=== PATIENT | female | born 1975 | race African-American/Black ===

== ENCOUNTER → 2016-08-11 | Outpatient (CLI) | payer BC ==
--- NOTE | 2016-08-12 09:39 | MM ---
Reason for exam: screening (asymptomatic). Last mammogram was performed 6 years and 6 months ago. Physical Findings: A clinical breast exam by your physician is recommended on an annual basis and results should be correlated with mammographic findings. MG Screening Mammo w CAD Bilateral CC and MLO view(s) were taken. Prior study comparison: February 14, 2010, bilateral diagnostic digital mammog. There are scattered fibroglandular densities. Finding: There are typically benign round calcifications in both breasts. There is no discrete abnormality. ASSESSMENT: Benign, BI-RAD 2 RECOMMENDATION: Routine screening mammogram of both breasts in 1 year.
== END | disposition home or self-care (01) ==
LOC: RADMAMWWP 08:26
PROVIDERS: ATTEND Obstetrics & Gynecology
DX: Z12.31 Encounter for screening mammogram for malignant neoplasm of breast (principal)

== ENCOUNTER → 2018-03-02 | Outpatient (CLI) | payer BC ==
--- NOTE | 2018-03-02 13:04 | MM ---
Reason for exam: clinical finding. Last mammogram was performed 1 year and 7 months ago. Physical Findings: Nurse Summary: 1cm nodule in the right breast at 9 o'clock (nurse kp). MG 3D Diag Mammo W/Cad JOSEY Bilateral CC, MLO, and XCCL view(s) were taken. LM, CC with magnification, and LM with magnification view(s) were taken of the right breast. Prior study comparison: August 11, 2016, bilateral MG screening mammo w CAD. There are scattered fibroglandular densities. There is a 5mm group of upper inner quadrant posterior depth linear heterogeneous calcifications. These results were verbally communicated with the patient and result sheet given to the patient on 03/02/18. ASSESSMENT: Suspicious, BI-RAD 4 RECOMMENDATION: Stereotactic core biopsy of the right breast. Called Dr. Sims with mammographic findings and has scheduled an appointment for the patient for 04/01/18 at 10:[address] Ramon. Biopsy scheduled for 04/15/18 at 8:00. PRELIMINARY REPORT CALLED AND FAXED TO DR. RAMON ON 03/02/18.
--- NOTE | 2018-03-02 13:06 | USB ---
Reason for exam: clinical finding. US Breast Limited RT Right limited breast ultrasound including focal area of concern, retroareolar and axilla demonstrates a 0.8 x 0.7 x 0.6cm oval, node at 10 o'clock and a 1.7 x 1.3 x 0.9cm axilla node. Benign appearing lymph nodes. These results were verbally communicated with the patient and result sheet given to the patient on 03/02/18. ASSESSMENT: Suspicious, BI-RAD 4 RECOMMENDATION: Stereotactic core biopsy of the right breast. Called Dr. Sims with mammographic findings and has scheduled an appointment for the patient for 04/01/18 at 10:[address] Ramon. Biopsy scheduled for 04/15/18 at 8:00. PRELIMINARY REPORT CALLED AND FAXED TO DR. RAMON ON 03/02/18.
== END | disposition home or self-care (01) ==
LOC: RADMAMWWP 09:39
PROVIDERS: ATTEND Obstetrics & Gynecology
DX: N63.31 Unspecified lump in axillary tail of the right breast (principal)
CPT/HCPCS: 77062; 77066

== ENCOUNTER → 2018-04-01 | Outpatient (CLI) | payer BC ==
[2018-04-01 10:39] VITALS: BP 137/86; PULSE 75; RESP 18; TEMP 98; BMI 39.4
--- NOTE | 2018-04-01 11:28 | P.GSHP ---
History of Present Illness H&P Date: 04/01/18 Chief Complaint: Mammographic abnormality right breast Avis is a 42-year-old -Portuguese female who noticed some increased nodularity in her right breast approximately 4 months ago. When she came in for a screening mammogram the nurse noted some nodularity in the right breast at the 9 o'clock position. The patient herself had noted some nodularity in the 12 o'clock position of the right breast. The patient has had no trauma, nipple discharge, or infection in either breast. Her mammogram was performed 3017. This revealed scattered fibroglandular densities. There was a 5 mm group of upper inner quadrant posterior depth linear heterogeneous calcifications. No lesions of concern were noted in the left breast. The right breast and underwent an ultrasound which revealed a 0.8 x 0.6 cm oval noted at 10:00 and 1.7 x 1.3 cm axillary node. There were benign-appearing lymph nodes. The recommendation following ultrasound was first detected core biopsy of the right breast. Family History: no cancer Hormonal History: menarche: 10 pregnacy: 3, children 3, first at 17, breast fed: all menopause: Hysterectomy at the age of 29, still has both ovaries, fibroid tumors control pills: 1 year hormones: none Past Surgical History: 1. tumor off right ovary 2. gallbladder 3. Bowel surgery as an infant uncertain as to the type Past Medical History: 1. HTN 2. asthma Social History: smoke: stopped 1 month ago, used to be apack/week alcohol: occasional drugs: Marijuana occasionally - Constitutional Comment: BMI 39.5 Constitutional: Denies chills, Denies fever - EENT Eyes: bilateral blurred vision (wears glasses), denies pain Ears: deny: decreased hearing, tinnitus Ears, nose, mouth and throat: Reports headache, Denies sore throat - Breasts Breasts: bilateral: as per HPI - Cardiovascular Cardiovascular: Reports high blood pressure, Denies chest pain, Denies shortness of breath - Respiratory Comment: asthma - Gastrointestinal Gastrointestinal: Reports diarrhea, Denies abdominal pain, Denies nausea, Denies vomiting - Genitourinary (Female) Genitourinary: Denies dysuria, Denies hematuria - Menstruation Menstruation: Reports post hysterectomy - Musculoskeletal Musculoskeletal: Reports myalgias - Integumentary Integumentary: Denies pruritus, Denies rash - Neurological Neurological: Reports weakness, Denies numbness - Psychiatric Psychiatric: Denies anxiety, Denies depression - Endocrine Comment: lost 30 pounds Endocrine: Denies fatigue, Denies weight change - Hematologic/Lymphatic Comment: none - Allergic/Immunologic Allergic/Immunologic: Reports seasonal allergies Past Medical History Past Medical History: Asthma, Hypertension History of Any Multi-Drug Resistant Organisms: None Reported Past Surgical History: Hysterectomy Additional Past Surgical History / Comment(s): BENIGN TUMOR REMOVED FROM OVARY Past Anesthesia/Blood Transfusion Reactions: No Reported Reaction Past Psychological History: No Psychological Hx Reported Smoking Status: Former smoker Past Alcohol Use History: Occasional Additional Past Alcohol Use History / Comment(s): STATES QUIT SMOKING ONE WEEK AGO, STARTED 2014, SMOKED LESS THAN 1/2 PPD Past Drug Use History: None Reported - Past Family History Brother(s) Family Medical History: Deep Vein Thrombosis (DVT) Medications and Allergies Home Medications Medication Instructions Recorded Confirmed Type Hydrochlorothiazide [Hydrodiuril] 25 mg PO DAILY 03/09/18 04/01/18 History Multivit with Calcium,Iron,Min 1 each PO DAILY 03/09/18 04/01/18 History [Women's Multivitamin] Metoprolol Succinate (ER) [Toprol 25 mg PO DAILY 04/01/18 04/01/18 History Xl] Allergies Allergy/AdvReac Type Severity Reaction Status Date / Time No Known Allergies Allergy Verified 03/09/18 14:35 Surgical - Exam Vital Signs Temp Pulse Resp BP Pulse Ox 98.0 F 75 18 137/86 98 04/01/18 10:29 04/01/18 10:29 04/01/18 10:29 04/01/18 10:29 04/01/18 10:29 bmi 39.5 - General obese - Eyes normal ocular movement - ENT no hearing loss, no congestion - Neck no masses, trachea midline - Respiratory normal expansion, normal respiratory effort - Cardiovascular Rhythm: regular Heart Sounds: normal: S1, S2 - Abdomen Abdomen: soft, non tender, no guarding, no rigid, no rebound - Integumentary good turger - Neurologic no disoriented, no combative - Musculoskeletal normal gait - Psychiatric oriented to time, oriented to person, oriented to place, speech is normal, memory intact breast exam: Right breast: Multi-positional exam fibrocystic changes, particular tension to the 9:00 area of reveals only fibrocystic changes no definite mass Right axilla: No adenopathy of concern Left breast: Multiple positional exam no dominant masses or nodules of concern Left axilla: No adenopathy of concern Results Radiograph reports of the breast reviewed Assessment and Plan Assessment: Impression/plan: 1. Abnormal mammogram right breast revealing 5 mm group of upper inner quadrant posterior depth linear heterogeneous calcifications 2. Fibrocystic breast changes 3. Hypertension 4. Myalgias Plan: 1. Severe tactic core biopsy of the right breast 2. Medical management of medical conditions Cc: Dr. Sims The procedure is discussed in detail with the patient and her family they understand the risks and benefits and wished to proceed.
== END ==
LOC: WWCWWP 10:19
PROVIDERS: ATTEND Surgery
DX: Z53.9 Procedure and treatment not carried out, unspecified reason (principal)

== ENCOUNTER → 2018-04-15 | Day surgery (SDC) | payer BC ==
[2018-04-15 07:17] VITALS: BP 164/101; PULSE 76; RESP 16; TEMP 99.3; BMI 37.8
--- NOTE | 2018-04-15 13:57 | MM ---
EXAMINATION TYPE: MG discontinued stereo core RT DATE OF EXAM: 04/15/2018 COMPARISON: Prior mammogram March 02, 2018 and older studies. CLINICAL HISTORY: Suspicious group of calcifications right breast, abnormal mammogram TECHNIQUE: Stereotactic guided core biopsy of right breast. FINDINGS: The procedure of stereotactic guided core biopsy was explained to the patient. Benefits, a lternatives, and risks were discussed. An informed consent was then obtained. Procedure was attempted via CC and lateral compression. Both techniques failed to safely localize rukhsana up of calcifications separate from adjacent vessels. Patient was also hypertensive at time of attempt ed procedure. For above reasons procedure was canceled. It was discussed with surgeon and patient to perform needle localization with wire placement and surg ical excision. Patient was agreeable and left department in stable condition IMPRESSION: As above.
== END | disposition home or self-care (01) ==
LOC: RADMAMWWP 06:56
PROVIDERS: ATTEND Surgery
DX: R92.1 Mammographic calcification found on diagnostic imaging of breast (principal); Z53.9 Procedure and treatment not carried out, unspecified reason

== ENCOUNTER → 2018-04-22 | Outpatient (CLI) | payer BC ==
[2018-04-22 10:34] VITALS: BP 164/88; PULSE 80; RESP 20; TEMP 98.4; BMI 39.4
--- NOTE | 2018-04-22 11:04 | P.GSHP ---
History of Present Illness H&P Date: 04/22/18 Chief Complaint: Mammographic abnormality right breast The patient is a 42-year-old -[place] female who had noticed some increased nodularity in her right breast several months ago. She then had a screening mammogram done in the nurse noticed some nodularity in the right breast at the 9 o'clock position. The patient herself had noted the nodularity at the 12 o'clock position. The patient had no trauma nipple discharge or infection either breast. Mammogram was performed in February and this revealed scattered fibroglandular densities. There was also noted to be a 5 mm group of upper inner quadrant posterior duct linear heterogeneous calcifications. No lesions of concern were noted in the left breast. The right breast and underwent an ultrasound which revealed a 0.8 cm lesion at 10:00 and 1.7 x 1.3 cm axillary node which appeared to be benign. Was recommended she undergo a stereotactic core biopsy of the right breast. She presented for stereotactic core biopsy on [id number]. The lesion of concern was noted to be in proximity to some blood vessels and it was felt that it was safest to do the biopsy in the operating room with needle localization. Family history: Negative for cancer Hormonal history: Menarche: 10 Pregnancies: 3, children 3, Versed 17, breast fed: All Menopause: Hysterectomy at the age of 29, still has both ovaries, done for fibroid tumors control pills: 1 year Hormones: None Past surgical history: 1. Tumor of the right ovary 2. Cholecystectomy 3. Bowel surgery as an uncertain as to the type Past medical history: Hypertension Asthma Social history: Smoke: Stopped 1 month ago used to be 1 pack a week Alcohol: Occasionally Drugs: Marijuana occasionally - Review of Systems Comment: BMI 39.5 - Constitutional Constitutional: Denies chills, Denies fever - EENT Comment: wears glasses Eyes: bilateral blurred vision, denies pain Ears, nose, mouth and throat: Reports headache, Denies sore throat - Breasts Breasts: bilateral: as per HPI - Cardiovascular Cardiovascular: Reports high blood pressure - Respiratory Comment: asthma - Gastrointestinal Gastrointestinal: Denies abdominal pain, Denies diarrhea, Denies nausea, Denies vomiting - Genitourinary (Female) Genitourinary: Denies dysuria, Denies hematuria - Menstruation Menstruation: Reports post hysterectomy - Musculoskeletal Musculoskeletal: Reports myalgias - Integumentary Integumentary: Denies pruritus, Denies rash - Neurological Neurological: Reports weakness - Psychiatric Psychiatric: Denies anxiety, Denies depression - Endocrine Endocrine: Reports weight change - Hematologic/Lymphatic Comment: none - Allergic/Immunologic Allergic/Immunologic: Reports seasonal allergies Past Medical History Past Medical History: Asthma, Hypertension History of Any Multi-Drug Resistant Organisms: None Reported Past Surgical History: Hysterectomy Additional Past Surgical History / Comment(s): BENIGN TUMOR REMOVED FROM OVARY Past Anesthesia/Blood Transfusion Reactions: No Reported Reaction Past Psychological History: No Psychological Hx Reported Smoking Status: Never smoker Past Alcohol Use History: Occasional Additional Past Alcohol Use History / Comment(s): STATES QUIT SMOKING ONE WEEK AGO, STARTED 2014, SMOKED LESS THAN 1/2 PPD Past Drug Use History: None Reported - Past Family History Brother(s) Family Medical History: Deep Vein Thrombosis (DVT) Medications and Allergies Home Medications Medication Instructions Recorded Confirmed Type Hydrochlorothiazide [Hydrodiuril] 25 mg PO DAILY 03/09/18 04/22/18 History Multivit with Calcium,Iron,Min 1 each PO DAILY 03/09/18 04/22/18 History [Women's Multivitamin] Metoprolol Succinate (ER) [Toprol 25 mg PO DAILY 04/01/18 04/22/18 History Xl] Allergies Allergy/AdvReac Type Severity Reaction Status Date / Time No Known Allergies Allergy Verified 04/15/18 07:06 Surgical - Exam Vital Signs Temp Pulse Resp BP 98.4 F 80 20 164/88 04/22/18 10:26 04/22/18 10:26 04/22/18 10:26 04/22/18 10:26 BMI 39.5 - General obese - Eyes normal ocular movement - ENT no hearing loss, no congestion - Neck no masses, trachea midline - Respiratory normal respiratory effort, clear to auscultation - Cardiovascular Rhythm: regular Heart Sounds: normal: S1, S2 - Abdomen Abdomen: soft, non tender, no guarding, no rigid, no rebound - Integumentary normal turger, no icterus Breast examination: Right breast: Multi-positional exam fibrocystic changes, no dominant masses or nodules of concern Right axilla: No adenopathy of concern Left breast: Multi-positional exam no dominant masses or nodules of concern Left axilla: No adenopathy of concern - Musculoskeletal normal gait, normal posture - Psychiatric oriented to time, oriented to person, oriented to place, speech is normal, memory intact Results Radiographs reviewed with radiologist, area of concern in close proximity to large blood vessels and not felt to be a good candidate for stereotactic core biopsy Assessment and Plan Assessment: Impression: 1. Abnormal right breast mammogram revealing 5 mm groove upper inner quadrant posterior depth linear heterogeneous calcifications, not conducive to stereotactic core biopsy 2. Fibrocystic breast changes 3. Hypertension 4. Myalgia Plan: 1. Needle localization excisional biopsy of area of concern in the right breast 2. Medical management for hypertension 3. Medical clearance Plan: Risk and benefits of needle localization and excisional biopsy were discussed with the patient and her mother. She understands and wishes to proceed. Cc: Dr. Sims
== END ==
LOC: WWCWWP 09:46
PROVIDERS: ATTEND Surgery
DX: N63.10 Unspecified lump in the right breast, unspecified quadrant (principal); N60.11 Diffuse cystic mastopathy of right breast; I10 Essential (primary) hypertension; M79.10 Myalgia, unspecified site

== ENCOUNTER 2018-05-18 06:59 | Day surgery (SDC) | payer BC ==
[2018-05-17 09:05] VITALS: BMI 41.0
[~2018-05-18 06:59] MED LIST: DEXAMETHASONE SOD PHOSPHATE 10 MG/ML 1 ML VIAL IV ONE; HEPARIN SODIUM,PORCINE 5,000 UNIT/ML 1 ML VIAL SQ ONE; LACTATED RINGERS 1,000 ML IV SCH; LIDOCAINE 1% 20 ML VIAL (10MG/ML) FOR IV START INTRADERMA PRN; MIDAZOLAM (PF) 2 MG/2 ML VIAL IV PRN; ONDANSETRON 4 MG/2 ML VIAL IVP ONE; Pre Op ABX Message 1 EACH MISC MISCELLANE ONE; SCOPOLAMINE 1.5MG/72HR PATCH TRANSDERM ONE
[2018-05-18] MEDS ORDERED: ALPRAZolam 0.5 MG TAB OG-TUBE ONE (07:41)
[2018-05-18] MEDS ORDERED: LIDOCAINE 1% INJ 10MG/ML (20 ML MDV) SQ ONE ×3 (08:30→09:58)
[2018-05-18] MEDS ORDERED: SODIUM BICARB 4% 5 ML VIAL (0.48 MEQ/ML) MISCELLANE ONE (08:30)
[2018-05-18] MEDS ORDERED: LIDOCAINE 1% INJ 10MG/ML (20 ML MDV) ONE (09:36)
[2018-05-18] MEDS ORDERED: ePHEDrine SULFATE/0.9% NACL/PF 50 MG/5 ML SYRINGE IV ONE (09:36)
[2018-05-18] MEDS ORDERED: fentaNYL (PF) 50 MCG/ML 2 ML AMP ONE (09:36)
[2018-05-18] MEDS ORDERED: SUCCINYLCHOLINE CHLORIDE 100 MG/5 ML SYR IV ONE (09:36)
[2018-05-18] MEDS ORDERED: PROPOFOL 10 MG/ML 20 ML VIAL IV ONE (09:36)
[2018-05-18] MEDS ORDERED: MIDAZOLAM 2 MG/2 ML VIAL ONE (09:36)
[2018-05-18] MEDS ORDERED: HEPARIN SODIUM,PORCINE 5,000 UNIT/ML 1 ML VIAL SQ ONE (09:50)
--- NOTE | 2018-05-18 10:43 | P.OP ---
Date of Procedure: 05/18/18 Preoperative Diagnosis: Microcalcifications of concern right breast Postoperative Diagnosis: Same Procedure(s) Performed: Needle localization excisional biopsy area of concern in the right breast Anesthesia: SAMMIEA Surgeon: Aneta Ramon Estimated Blood Loss (ml): 5 IV fluids (ml): 700 Pathology: other (Breast tissue) Condition: stable Disposition: PACU Indications for Procedure: Mammographic abnormality right breast, failed attempt at stereo biopsy Operative Findings: Dense breast tissue Description of Procedure: The patient was taken to the operating room and following induction of anesthesia the right breast was prepped and draped in a sterile fashion. The localization of an area of concern in the right breast had been performed preoperatively. Attempted preoperative stereotactic biopsy was unsuccessful secondary to hypertension as well as large vessels in the area of the abnormality. An incision was made in the right breast and carried down to the shaft of the needle. The needle was elevated and grasped using an Allis clamp. Surrounding tissue was excised. Hemostasis was attained using electrocautery device. Radiograph of the specimen revealed the area of concern had been removed. After we were assured that hemostasis was attained the wound was well irrigated. Titanium clips were placed. The deep tissues were closed using 3-0 Vicryl suture. The skin was closed using 4-0 Monocryl. Steri-Strips were applied. All instrument and sponge counts were correct at the end of the case. The patient tolerated the procedure in stable condition. The specimen was sent to pathology. The patient will follow-up Dr. Damon next week.
--- NOTE | 2018-05-18 10:45 | P.DS ---
Providers Attending physician: Aneta Ramon Primary care physician: Stated None Plan - Discharge Summary New Discharge Prescriptions: No Action Hydrochlorothiazide [Hydrodiuril] 25 mg PO DAILY Multivit with Calcium,Iron,Min [Women's Multivitamin] 1 each PO DAILY Metoprolol Succinate (ER) [Toprol Xl] 25 mg PO DAILY Discharge Medication List Hydrochlorothiazide [Hydrodiuril] 25 mg PO DAILY 03/09/18 [History] Multivit with Calcium,Iron,Min [Women's Multivitamin] 1 each PO DAILY 03/09/18 [ History] Metoprolol Succinate (ER) [Toprol Xl] 25 mg PO DAILY 04/01/18 [History] Follow up Appointment(s)/Referral(s): Aneta Ramon MD [STAFF PHYSICIAN] - 1 Week Activity/Diet/Wound Care/Special Instructions: Wear bra until seen by Dr. Damon Patient may shower after [address] today Do not drive if taking opioid pain medication Discharge Disposition: HOME SELF-CARE
[2018-05-18 11:05] VITALS: TEMP 97.1
--- NOTE | 2018-05-18 11:12 | MM ---
EXAM: Needle localization with wire placement. CLINICAL HISTORY: New group of suspicious calcifications in right breast. Unsuccessful stereotactic g uided core biopsy. TECHNIQUE: Needle localization with wire placement and surgical excision of [facility] COMPARISON: Prior mammogram March 02, 2018 and older studies. FINDINGS: The procedure of needle localization with wire placement and than surgical excision was exp lained to the patient. Benefits, alternatives, and risks were discussed. An informed consent was th en obtained. The safest pathway for procedure was chosen. Safest pathway was cranial approach. The overlying skin was prepped and draped in usual sterile fashion. Lidocaine buffered with bicarbonate was used as ane sthetic into the skin and subcutaneous tissue up to the level of area of concern. A 9 cm needle was used. It was placed via a cranial approach under mammographic guidance. Subsequent 90 degrees mammo gram show the needle to be in satisfactory position relative to the targeted area. At this point, wi re was placed and the needle was withdrawn. The wire was fixed to patient's skin. Images were marke d for surgeon. The patient tolerated the procedure well without any immediate complication. The patient was kept in the radiology department for short stay after the procedure and then taken to surgery for surgical e xcision. Targeted calcifications and wire are identified in specimen mammogram. The patient was k ept in hospital for short stay after the procedure and then discharged home in stable condition. IMPRESSION: Successful, uncomplicated needle localization with wire placement and surgical excision o f suspicious group of calcifications in the right breast, full pathology results to follow. Low to intermediate index of suspicion noted at time of procedure.
[2018-05-18] MEDS: HYDROmorphone 0.5 MG/0.5 ML SYRINGE IVP PRN ×2 (11:30→11:43)
[2018-05-18] MEDS ORDERED: LACTATED RINGERS 1,000 ML IV ONE (12:01)
[2018-05-18 12:03] VITALS: RESP 16
[2018-05-18 12:19] VITALS: BP 146/88; PULSE 92
== END 2018-05-18 13:05 | disposition home or self-care (01) ==
LOC: OR 06:59
PROVIDERS: ATTEND Surgery
DX: N60.11 Diffuse cystic mastopathy of right breast (principal); R92.0 Mammographic microcalcification found on diagnostic imaging of breast; I10 Essential (primary) hypertension; J45.909 Unspecified asthma, uncomplicated; Z79.899 Other long term (current) drug therapy; Z90.710 Acquired absence of both cervix and uterus; Z87.891 Personal history of nicotine dependence
CPT/HCPCS: 19125; 88307; 76098; 19281; J2250; J1644; J1100; J2405; J2001; J3010; J0330; J2704; J1170

== ENCOUNTER → 2018-05-27 | Outpatient (CLI) | payer BC ==
[2018-05-27 15:33] VITALS: BP 176/91; PULSE 75; RESP 18; TEMP 97.6
--- NOTE | 2018-05-27 15:37 | P.PN ---
Progress Note - Text Progress Note Date: 05/27/18 Avis is a 42-year-old black female who presents status post right breast needle localization and excisional biopsy. She has no complaints at this time. Pathology revealed fibrocystic disease. Only scant microscopic mineralization 's were seen. Her radiographs were reviewed with the radiologist as well as the specimen radiograph and it is felt that the area of concern was removed. I' ve discussed with her that we will repeat a mammogram in 6 months and if necessary would repeat a biopsy but at this time it appears that the area was adequately sampled. The patient's mother has expressed some concerns about keloid formation, however there is nothing to show that that is happening at this time. Incision: Clean and dry Evidence of any infection Impression: 1. Fibrocystic breast changes 2. Hypertension Plan: 1. Repeat right breast mammogram and physician exam in 6 months 2. If patient is concerned about keloid formation she will call 3. Recommend follow-up with primary care doctor secondary to hypertension Cc: Dr. Sims
== END | disposition home or self-care (01) ==
LOC: WWCWWP 14:49
PROVIDERS: ATTEND Surgery
DX: Z53.9 Procedure and treatment not carried out, unspecified reason (principal)

== ENCOUNTER → 2018-06-03 | Outpatient (CLI) | payer BC ==
[2018-06-03 09:36] VITALS: BP 179/122; PULSE 91; RESP 18; TEMP 98.4; BMI 39.4
--- NOTE | 2018-06-03 09:55 | P.PN ---
Progress Note - Text Progress Note Date: 06/03/18 Patient is a 42-year-old black female who is status post excisional biopsy of a right breast lesion on 05-18-18. She was seen on and was doing well. The patient then states that she was out shoveling snow and noticed some discomfort in her right chest wall. She returns for repeat evaluation of the area. She has had no fever or chills. There is no swelling of the area. Physical exam: Blood pressure 179/122 Pulse 91 Temperature 98.4 Respirations 18 Lungs: Clear Heart: Regular rate and rhythm Incision: Clean and dry Evidence of any infection mild ecchymosis at the inches excision site Impression: 1. Incision site is healing well with no evidence of infection 2. Hypertension Plan: 1. Repeat right breast mammogram in 6 months with appointment here at that time 2. Follow-up with primary care physician related to hypertension Cc: Dr. Sims
== END | disposition home or self-care (01) ==
LOC: WWCWWP 09:11
PROVIDERS: ATTEND Surgery
DX: Z53.9 Procedure and treatment not carried out, unspecified reason (principal)

== ENCOUNTER → 2018-10-12 | Outpatient (CLI) | payer BC ==
--- NOTE | 2018-10-12 16:00 | XR ---
EXAMINATION TYPE: XR cervical spine comp DATE OF EXAM: 10/12/2018 TECHNIQUE: Frontal, lateral, oblique, and open mouth view of the cervical spine are obtained. HISTORY: M54.2 Cervicalgia COMPARISON: None FINDINGS: The cervical spine is visualized in its entirety from C1 thru the inferior C7 level, it is straightened in alignment without evidence of acute fracture or dislocation. Suboptimal evaluation o f C7-T1 disc space without dedicated swimmer's view. The pre-vertebral soft tissue appears within nor mal limits. The C1-C2 articulation is within normal limits on the open mouth view. Vertebral body he ights are maintained. Mild disc space narrowing and anterior spurring C5-C6 level. The oblique images are within normal limits. IMPRESSION: As above.
== END | disposition home or self-care (01) ==
LOC: RADXRMAIN 15:04
PROVIDERS: ATTEND Physician Assistant
DX: M99.71 Connective tissue and disc stenosis of intervertebral foramina of cervical region (principal)
CPT/HCPCS: 72050

== ENCOUNTER → 2018-11-22 | Outpatient (CLI) | payer BC ==
--- NOTE | 2018-11-23 09:09 | MM ---
Reason for exam: follow-up at short interval from prior study. Last mammogram was performed 9 months ago. History: Benign MG pre op needle loc RT of the right breast, May 18, 2018. MG discontinued stereo core RT of the right breast, April 15, 2018. Physical Findings: Nurse did not find any significant physical abnormalities on exam. MG 3D Diag Mammo W/Cad RT CC and MLO view(s) were taken of the right breast. Prior study comparison: March 02, 2018, bilateral MG 3d diag mammo w/cad JOSEY. August 11, 2016, bilateral MG screening mammo w CAD. The breast tissue is heterogeneously dense. This may lower the sensitivity of mammography. Post operative lumpectomy change with distortion and clips noted. These results were verbally communicated with the patient and result sheet given to the patient on 11/22/18. ASSESSMENT: Benign, BI-RAD 2 RECOMMENDATION: Follow-up diagnostic mammogram of both breasts in 6 months.
== END | disposition home or self-care (01) ==
LOC: RADMAMWWP 13:04
PROVIDERS: ATTEND Surgery
DX: R92.8 Other abnormal and inconclusive findings on diagnostic imaging of breast (principal)
CPT/HCPCS: 77061; 77065

== ENCOUNTER → 2018-11-25 | Outpatient (CLI) | payer BC ==
--- NOTE | 2018-11-25 16:12 | P.PN ---
Subjective Progress Note Date: 11/25/18 Principal diagnosis: fibrocystic breast disease Avis is a 42-year-old -[place] female who noticed some increased nodularity in her right breast approximately 4 months ago. When she came in for a screening mammogram the nurse noted some nodularity in the right breast at the 9 o'clock position. The patient herself had noted some nodularity in the 12 o'clock position of the right breast. The patient has had no trauma, nipple discharge, or infection in either breast. Her mammogram was performed [id number]. This revealed scattered fibroglandular densities. There was a 5 mm group of upper inner quadrant posterior depth linear heterogeneous calcifications. No lesions of concern were noted in the left breast. The right breast and underwent an ultrasound which revealed a 0.8 x 0.6 cm oval noted at 10:00 and 1.7 x 1.3 cm axillary node. There were benign-appearing lymph nodes. The recommendation following ultrasound was first detected core biopsy of the right breast. Attempted history of biopsy was unsuccessful secondary to vessels in the area. Was therefore recommended she undergo a needle local excisional biopsy in the operating room. This was performed on . Pathology revealed fibrocystic disease. The patient presents now for evaluation. [place] [id number]. The findings preliminarily were benign BIRADS 2, with repeat bilateral mammogram and 6 months time. The patient does not have any masses or lumps in her breasts for which she is concerned. Family History: no cancer Hormonal History: menarche: 10 pregnacy: 3, children 3, first at 17, breast fed: all menopause: Hysterectomy at the age of 29, still has both ovaries, fibroid tumors control pills: 1 year hormones: none Past Surgical History: 1. tumor off right ovary 2. gallbladder 3. Bowel surgery as an uncertain as to the type Past Medical History: 1. HTN 2. asthma Social History: smoke: stopped 7 months ago, used to be a pack/week alcohol: occasional drugs: Marijuana occasionally - Constitutional Comment: BMI 39.5 Constitutional: Denies chills, Denies fever - EENT Eyes: bilateral blurred vision (wears glasses), denies pain Ears: deny: decreased hearing, tinnitus Ears, nose, mouth and throat: Reports headache, Denies sore throat - Breasts Breasts: bilateral: as per HPI - Cardiovascular Cardiovascular: Reports high blood pressure, Denies chest pain, Denies shortness of breath - Respiratory Comment: asthma - Gastrointestinal Gastrointestinal: Reports diarrhea, Denies abdominal pain, Denies nausea, Denies vomiting - Genitourinary (Female) Genitourinary: Denies dysuria, Denies hematuria - Menstruation Menstruation: Reports post hysterectomy - Musculoskeletal Musculoskeletal: Reports myalgias - Integumentary Integumentary: Denies pruritus, Denies rash - Neurological Neurological: Reports weakness, Denies numbness - Psychiatric Psychiatric: Denies anxiety, Denies depression - Endocrine Comment: lost 30 pounds Endocrine: Denies fatigue, Denies weight change - Hematologic/Lymphatic Comment: none - Allergic/Immunologic Allergic/Immunologic: Reports seasonal allergies Past Medical History Past Medical History: Asthma, Hypertension History of Any Multi-Drug Resistant Organisms: None Reported Past Surgical History: Hysterectomy Additional Past Surgical History / Comment(s): BENIGN TUMOR REMOVED FROM OVARY Past Anesthesia/Blood Transfusion Reactions: No Reported Reaction Past Psychological History: No Psychological Hx Reported Smoking Status: Former smoker Past Alcohol Use History: Occasional Additional Past Alcohol Use History / Comment(s): STATES QUIT SMOKING ONE WEEK AGO, STARTED 2014, SMOKED LESS THAN 1/2 PPD Past Drug Use History: None Reported Objective - Exam BMI 41.1 - Constitutional General appearance: Present: obese - EENT Eyes: Present: EOMI ENT: Present: hearing grossly normal - Neck Neck: Present: normal ROM - Respiratory Respiratory: bilateral: CTA - Cardiovascular Rhythm: regular Heart sounds: normal: S1, S2 - Gastrointestinal General gastrointestinal: Present: soft - Integumentary Integumentary: Present: normal turgor - Musculoskeletal Musculoskeletal: Present: gait normal - Psychiatric Psychiatric: Present: A&O x's 3, appropriate affect, intact judgment & insight - Additional findings Additional findings: breast exam: Right breast: Multi-positional exam no dominant masses or nodules of concern, well-healed scar from prior surgery Right axilla: No adenopathy of concern Left breast: Multi-positional exam no dominant masses or nodules of concern Left axilla: No adenopathy of concern Assessment and Plan Assessment: Impression: 1. HTN 2. asthma 3. obesity 4. fibrocystic breast disease Plan: 1. bilateral mammogram in 6 months with appointment 2. medical managment of medical conditions CC: Dr. Maurice
== END ==
DX: Z53.9 Procedure and treatment not carried out, unspecified reason (principal)

== ENCOUNTER → 2019-06-03 | Outpatient (CLI) | payer BC ==
--- NOTE | 2019-06-03 11:50 | MM ---
Reason for exam: additional evaluation requested from prior study. Last mammogram was performed 6 months ago. History: Benign MG pre op needle loc RT of the right breast, May 18, 2018. MG discontinued stereo core RT of the right breast, April 15, 2018. Physical Findings: Nurse did not find any significant physical abnormalities on exam. MG 3D Diag Mammo W/Cad JOSEY Bilateral CC and MLO view(s) were taken. Prior study comparison: November 22, 2018, right breast MG 3d diag mammo w/cad RT. March 02, 2018, bilateral MG 3d diag mammo w/cad JOSEY. There are scattered fibroglandular densities. Benign appearing bilateral calcifications. No suspicious abnormality. Post surigical change on the right No significant new findings when compared with previous films. These results were verbally communicated with the patient and result sheet given to the patient on 06/03/19. ASSESSMENT: Benign, BI-RAD 2 RECOMMENDATION: Routine screening mammogram of both breasts in 1 year.
== END | disposition home or self-care (01) ==
LOC: RADMAMWWP 10:55
PROVIDERS: ATTEND Surgery
DX: R92.8 Other abnormal and inconclusive findings on diagnostic imaging of breast (principal)
CPT/HCPCS: 77062; 77066

== ENCOUNTER 2019-06-27 16:35 | Emergency (ER) | payer BC ==
[2019-06-27 16:40] VITALS: BP 180/95; PULSE 86; RESP 20; TEMP 98.2
[2019-06-27] MEDS ORDERED: KETOROLAC 30 MG/ML 1 ML VIAL IM STA (16:45)
--- NOTE | 2019-06-27 17:07 | XR ---
EXAMINATION TYPE: XR knee complete LT DATE OF EXAM: 06/27/2019 COMPARISON: NONE HISTORY: 44 year-old female left knee pain and swelling TECHNIQUE: 3 views FINDINGS: Small knee joint effusion. Extensor mechanism is intact. No acute fracture, subluxation, or dislocation. IMPRESSION: Nonspecific small knee joint effusion. No acute osseous abnormality seen.
--- NOTE | 2019-06-27 18:08 | US ---
EXAMINATION TYPE: US venous doppler duplex LE DATE OF EXAM: 06/27/2019 5:31 PM COMPARISON: NONE CLINICAL HISTORY: 44-year-old female Left leg pain/swelling. Left leg pain and swelling x 3 weeks. No hx of DVT. Patient does not take blood thinners. SIDE PERFORMED: Left TECHNIQUE: The lower extremity deep venous system is examined utilizing real time linear array sonog betsy with graded compression, doppler sonography and color-flow sonography. FINDINGS: VESSELS IMAGED: External Iliac Vein (EIV) Common Femoral Vein Deep Femoral Vein Greater Saphenous Vein * Femoral Vein Popliteal Vein Small Saphenous Vein * Proximal Calf Veins (* superficial vessels) Left Leg: No evidence of DVT in veins imaged at this time from upper calf veins up to the EIV. There appears to be a complex area medial left popliteal fossa measurin.3 x 1.5 x 1.4 cm. IMPRESSION: 1. No evidence for DVT within the lower extremity imaged from the groin to the upper calf. 2. Small 3.3 cm Mcnally cyst noted.
--- NOTE | 2019-06-27 18:15 | ED ---
Lower Extremity Injury HPI - General Chief Complaint: Extremity Injury, Lower Stated Complaint: left knee swelling Time Seen by Provider: 06/27/19 16:45 Source: patient Mode of arrival: ambulatory Limitations: no limitations - History of Present Illness Initial Comments: 44 year-old female patient presents to the emergency department today for evaluation of left knee pain and swelling. Patient states she's had this pain for the last month or so since returning to work. Patient states that she'll have swelling on the lateral aspect of her knee and significant pain to the posterior knee. She denies any calf pain or tenderness. Denies any recent travel or long car rides. Denies history of blood clots. Denies any known injury. Patient denies any recent rash, fever, chills, shortness breath, chest pain, abdominal pain, nausea, vomiting, diarrhea, constipation, back pain, dizziness, weakness, hematuria, dysuria, urinary urgency, urinary frequency, headache, visual changes, or any other complaints. - Related Data Home Medications Medication Instructions Recorded Confirmed Hydrochlorothiazide [Hydrodiuril] 25 mg PO QAM 03/09/18 11/25/18 Multivit with Calcium,Iron,Min 1 each PO QAM 03/09/18 11/25/18 [Women's Multivitamin] Metoprolol Succinate (ER) [Toprol 25 mg PO QAM 04/01/18 11/25/18 Xl] amLODIPine [Norvasc] 5 mg PO DAILY 11/25/18 11/25/18 Allergies Allergy/AdvReac Type Severity Reaction Status Date / Time No Known Allergies Allergy Verified 06/27/19 16:40 Review of Systems ROS Statement: Those systems with pertinent positive or pertinent negative responses have been documented in the HPI. ROS Other: All systems not noted in ROS Statement are negative. Past Medical History Past Medical History: Asthma, Hypertension History of Any Multi-Drug Resistant Organisms: None Reported Past Surgical History: Cholecystectomy, Hysterectomy Additional Past Surgical History / Comment(s): BENIGN TUMOR REMOVED FROM OVARY Past Anesthesia/Blood Transfusion Reactions: No Reported Reaction Past Psychological History: No Psychological Hx Reported Smoking Status: Former smoker Past Alcohol Use History: Occasional Past Drug Use History: Marijuana - Past Family History Brother(s) Family Medical History: Deep Vein Thrombosis (DVT) General Exam Limitations: no limitations General appearance: alert, in no apparent distress, other (This is a well- developed, well-nourished adult female patient in no acute distress. Vital sign s upon presentation are temperature 98.2F, pulse 86, respirations 20, blood pressure 180/95, pulse ox 99% on room air.) Respiratory exam: Present: normal lung sounds bilaterally. Absent: respiratory distress, wheezes, rales, rhonchi, stridor Cardiovascular Exam: Present: regular rate, normal rhythm, normal heart sounds. Absent: systolic murmur, diastolic murmur, rubs, gallop, clicks Extremities exam: Present: full ROM, tenderness (Tenderness over the left posterior knee), normal capillary refill, other (Tenderness to the left lateral knee. Skin to the left leg is warm and dry. Cap refills less than 3 seconds. Pedal and posttibial pulses 2+ and equal bilaterally.). Absent: pedal edema, joint swelling, calf tenderness Course Vital Signs 06/27/19 16:38 Temperature 98.2 F Pulse Rate 86 Respiratory 20 Rate Blood Pressure 180/95 O2 Sat by Pulse 99 Oximetry Medical Decision Making - Medical Decision Making 44 year-old female patient presents to the emergency department today for evaluation of left knee pain and swelling. Physical examination did reveal tenderness over the left posterior knee, some lateral swelling. X-ray showed small effusion.. Was Obtained There Is No Evidence for DVT but There Is a 3.3 Cm Mcnally's Cyst Noted. We Did Discuss Findings and Results. Pain Could Be Stemming from the Mcnally's Cyst but Also Could Be from a Meniscus Injury Causing Inflammation. We Did Place an Philip Wrap to the Knee. Patient Be Given Medication for Pain. She Is Instructed to Follow up with Bilingual Medical Assistant for Further Evaluation As Soon As Possible. Return Parameters Were Discussed in Detail. She Verbalizes Understanding and Agrees with This Plan. - Radiology Data Radiology results: report reviewed, image reviewed Venous Doppler duplex of the left lower extremity was obtained. Report reviewed in its entirety. Impression by Dr. Monroe shows no evidence for DVT was in the lower extremity image from the groin to the upper calf. There is a small 3.3 cm Mcnally's cyst noted. 3 views of the left knee are obtained. Report was reviewed in its entirety. Impression by Dr. Monroe shows nonspecific small knee joint effusion. No acute osseous abnormalities seen. Disposition Clinical Impression: Synovial cyst of popliteal space [Mcnally], left knee, Knee effusion, left Disposition: HOME SELF-CARE Condition: Good Instructions (If sedation given, give patient instructions): Bakers Cyst (ED), Swollen Knee Joint (ED), Knee Pain (ED) Additional Instructions: Use Philip wrap for comfort and support. Take, Motrin for pain control. Follow-up with your primary care physician for recheck in 1-2 days. Follow up with the regulatory law specialist for further evaluation as soon as possible. Return to the emergency department immediately for any new, worsening, or concerning symptoms. Is patient prescribed a controlled substance at d/c from ED?: No Referrals: Jose Eduardo Maurice DO [Primary Care Provider] - 1-2 days Time of Disposition: 18:15
== END 2019-06-27 18:23 | disposition home or self-care (01) ==
LOC: EC 16:35
DX: M71.22 Synovial cyst of popliteal space [Baker], left knee (principal); M25.462 Effusion, left knee; I10 Essential (primary) hypertension; Z79.899 Other long term (current) drug therapy; Z87.891 Personal history of nicotine dependence
CPT/HCPCS: 99284; 96372; 73562; 93971; J1885

== ENCOUNTER 2024-02-29 10:21 | Emergency (ER) | payer BC ==
[2024-02-29 10:35] VITALS: RESP 18; TEMP 98.8
--- NOTE | 2024-02-29 11:42 | XR ---
EXAMINATION TYPE: XR chest 2V DATE OF EXAM: 02/29/2024 11:34 AM COMPARISON: Chest radiographs from 10/23/2017 TECHNIQUE: XR chest 2V Frontal and lateral views of the chest. CLINICAL INDICATION:Female, 48 years old with history of cough; FINDINGS: Lungs/Pleura: There is no evidence of pleural effusion, focal consolidation, or pneumothorax. Pulmonary vascularity: Unremarkable. Heart/mediastinum: Cardiomediastinal silhouette is unremarkable. Musculoskeletal: No acute osseous pathology. IMPRESSION: No acute cardiopulmonary disease/process. [facility], , 02/29/2024 11:40 AM
--- NOTE | 2024-02-29 11:44 | ED ---
URI HPI - General Chief Complaint: Upper Respiratory Infection Stated Complaint: cough,congestion Time Seen by Provider: 02/29/24 10:35 Source: patient, RN notes reviewed Mode of arrival: ambulatory Limitations: no limitations - History of Present Illness Initial Comments: 48-year-old female presents emergency department chief complaint of cough and congestion. Patient states that she has been sick for last several days initially started with some nasal congestion and eye drainage. Patient states that has progressed to a productive cough, body aches, fevers and chills she has no GI symptoms denies any nausea vomit diarrhea constipation she had multiple sick contacts. Denies any difficulty breathing currently. - Related Data Home Medications Medication Instructions Recorded Confirmed Multivit with Calcium,Iron,Min 1 each PO QAM 03/09/18 11/25/18 [Women's Multivitamin] hydroCHLOROthiazide [Hydrodiuril] 25 mg PO QAM 03/09/18 11/25/18 Metoprolol Succinate (ER) [Toprol 25 mg PO QAM 04/01/18 11/25/18 Xl] amLODIPine [Norvasc] 5 mg PO DAILY 11/25/18 11/25/18 Previous Rx's Medication Instructions Recorded Azithromycin [Zithromax Z Pack] 0 tab PO DIRECTED #6 tab 02/29/24 predniSONE 50 mg PO DAILY #5 tab 02/29/24 Allergies Allergy/AdvReac Type Severity Reaction Status Date / Time No Known Allergies Allergy Verified 06/27/19 16:40 Review of Systems ROS Statement: Those systems with pertinent positive or pertinent negative responses have been documented in the HPI. ROS Other: All systems not noted in ROS Statement are negative. Past Medical History Past Medical History: Asthma, Hypertension History of Any Multi-Drug Resistant Organisms: None Reported Past Surgical History: Cholecystectomy, Hysterectomy Additional Past Surgical History / Comment(s): BENIGN TUMOR REMOVED FROM OVARY Past Anesthesia/Blood Transfusion Reactions: No Reported Reaction Past Psychological History: No Psychological Hx Reported Smoking Status: Never smoker Past Alcohol Use History: Rare Past Drug Use History: Marijuana - Past Family History Brother(s) Family Medical History: Deep Vein Thrombosis (DVT) General Exam Limitations: no limitations General appearance: alert, in no apparent distress Head exam: Present: atraumatic, normocephalic, normal inspection Eye exam: Present: normal appearance, PERRL, EOMI. Absent: scleral icterus, conjunctival injection, periorbital swelling ENT exam: Present: normal exam, normal oropharynx, mucous membranes moist Neck exam: Present: normal inspection, full ROM. Absent: tenderness, meningismus, lymphadenopathy Respiratory exam: Present: normal lung sounds bilaterally. Absent: respiratory distress, wheezes, rales, rhonchi, stridor Cardiovascular Exam: Present: regular rate, normal rhythm, normal heart sounds. Absent: systolic murmur, diastolic murmur, rubs, gallop, clicks Course Vital Signs 02/29/24 02/29/24 10:32 12:31 Temperature 98.8 F Pulse Rate 90 75 Respiratory 18 18 Rate Blood Pressure 160/92 152/87 O2 Sat by Pulse 95 98 Oximetry Medical Decision Making - Medical Decision Making Was pt. sent in by a medical professional or institution (, PA, PHYSICAL THERAPY ASSISTANT INSTRUCTOR, urgent care, hospital, or retirement...) When possible be specific @ -No Did you speak to anyone other than the patient for history (EMS, parent, family, police, friend...)? What history was obtained from this source @ -No Did you review nursing and triage notes (agree or disagree)? Why? @ -I reviewed and agree with nursing and triage notes Were old charts reviewed (outside hosp., previous admission, EMS record, old EKG, old radiological studies, urgent care reports/EKG's, retirement records)? Report findings @ -No old charts were reviewed Differential Diagnosis (chest pain, altered mental status, abdominal pain women, abdominal pain men, vaginal bleeding, weakness, fever, dyspnea, syncope, headache, dizziness, GI bleed, back pain, seizure, CVA, palpatations, mental health, musculoskeletal)? @ -COVID 19, RSV, influenza, pneumonia, acute bronchitis, URI, this list is not all inclusive EKG interpreted by me (3pts min.). @ -None X-rays interpreted by me (1pt min.). @X-ray shows no definite pneumonia, mild changes CT interpreted by me (1pt min.). @ -None done U/S interpreted by me (1pt. min.). @ -None done What testing was considered but not performed or refused? (CT, X-rays, U/S, labs)? Why? @ -None What meds were considered but not given or refused? Why? @ -None Did you discuss the management of the patient with other professionals (professionals i.e. , PA, PHYSICAL THERAPY ASSISTANT INSTRUCTOR, lab, RT, psych nurse, forensic social worker, roll over loader, teacher, mounted police officer, casework specialist)? Give summary @ -No Was smoking cessation discussed for >3mins.? @ -No Was critical care preformed (if so, how long)? @ -No Were there social determinants of health that impacted care today? How? (Homelessness, low income, unemployed, alcoholism, drug addiction, transportation, low edu. Level, literacy, decrease access to med. care, longterm, rehab)? @ -No Was there de-escalation of care discussed even if they declined (Discuss DNR or withdrawal of care, Hospice)? DNR status @ -No What co-morbidities impacted this encounter? (DM, HTN, Smoking, COPD, CAD, Cancer, CVA, ARF, Chemo, Hep., AIDS, mental health diagnosis, sleep apnea, morbid obesity)? @ -None Was patient admitted / discharged? Hospital course, mention meds given and route, prescriptions, significant lab abnormalities, going to OR and other pertinent info. @ -Discharge patient has negative Cepheid swab, no evidence of lobar pneumonia but will be treated for tracheobronchitis. Return parameters discussed. Undiagnosed new problem with uncertain prognosis? @ -No Drug Therapy requiring intensive monitoring for toxicity (Heparin, Nitro, Insulin, Cardizem)? @ -No Were any procedures done? @ -No Diagnosis/symptom? @ -Tracheobronchitis Acute, or Chronic, or Acute on Chronic? @ -Acute Uncomplicated (without systemic symptoms) or Complicated (systemic symptoms)? @ -uncomplicated Side effects of treatment? @ -No Exacerbation, Progression, or Severe Exacerbation? @ -No Poses a threat to life or bodily function? How? (Chest pain, [place], [place], pneumonia, PE, COPD, DKA, ARF, appy, cholecystitis, CVA, Diverticulitis, Homicidal, Suicidal, threat to staff... and all critical care pts) @ -No - Lab Data Lab Results 02/29/24 Range/Units 11:17 Influenza Type A (PCR) Not Detected (Not Detectd) Influenza Type B (PCR) Not Detected (Not Detectd) RSV (PCR) Not Detected (Not Detectd) SARS-CoV-2 (PCR) Not Detected (Not Detectd) Disposition Clinical Impression: Tracheobronchitis Disposition: HOME SELF-CARE Condition: Stable Instructions (If sedation given, give patient instructions): Upper Respiratory Infection (ED) Additional Instructions: Please return to the Emergency Department if symptoms worsen or any other concerns. Prescriptions: predniSONE 50 mg PO DAILY #5 tab Azithromycin [Zithromax Z Pack] 0 tab PO DIRECTED #6 tab Is patient prescribed a controlled substance at d/c from ED?: No Referrals: Pedro Echeverria MD [Primary Care Provider] - 1-2 days Time of Disposition: 12:20
[2024-02-29 12:34] VITALS: BP 152/87; PULSE 75
== END 2024-02-29 12:34 | disposition home or self-care (01) ==
LOC: EC 10:21
DX: J40 Bronchitis, not specified as acute or chronic (principal)
CPT/HCPCS: 71046; 87636; 99283

== ENCOUNTER → 2024-09-08 | Outpatient (CLI) | payer BC ==
--- NOTE | 2024-09-08 10:11 | MM ---
Reason for Exam: Screening (asymptomatic). Last mammogram was performed 5 year(s) and 4 month(s) ago. Patient History: Menarche at age 10. First Full-Term at age 17. Hysterectomy at age 29. 05/18/2018, Benign Core Biopsy on the right side. 04/15/2018, MG discontinued stereo core RT on the right side. Risk Values: Radha 5 year model risk: 1.2%. NCI Lifetime model risk: 8.5%. Prior Study Comparison: 03/02/2018 Bilateral Diagnostic Mammogram, [facility]. 11/22/2018 Right Diagnostic Mammogram, [facility]. 06/03/2019 Bilateral Diagnostic Mammogram, [facility]. Tissue Density: There are scattered areas of fibroglandular density. Findings: Analyzed By CAD. Right breast surgical clips. Right breast: Post lumpectomy changes right breast. There is no suspicious group of microcalcifications or new suspicious mass. Benign-appearing calcifications right breast. Left breast: There is no suspicious group of microcalcifications or new suspicious mass. Benign-appearing calcifications left breast. Overall Assessment: Benign, BI-RAD 2 Management: Screening Mammogram of both breasts in [address] [facility] will attempt to contact patient to return for supplemental views and ultrasound if indicated. Patient should continue monthly self-breast exams. A clinical breast exam by your physician is recommended on an annual basis. This exam should not preclude additional follow-up of suspicious palpable abnormalities. Note on Radha scores and lifetime risk: 1. A Radha score greater than 3% is considered moderate risk. If this is the case, consider specialist referral to assess eligibility for a risk reducing agent. 2. If overall lifetime risk for the development of breast cancer is 20% or higher, the patient may qualify for future screening with alternating mammogram and breast MRI. [facility], , 09/08/2024 10:08 AM. Electronically signed and approved by: Abiodun Orona DO
== END | disposition home or self-care (01) ==
LOC: RADMAMWWP 08:50
PROVIDERS: ATTEND Family Medicine
DX: Z12.31 Encounter for screening mammogram for malignant neoplasm of breast (principal); R92.323 Mammographic fibroglandular density, bilateral breasts
CPT/HCPCS: 77063; 77067

== ENCOUNTER 2024-10-18 10:51 | Day surgery (SDC) | payer BC ==
[2024-10-14 16:01] VITALS: BMI 39.4
[~2024-10-18 10:51] MED LIST changes: -DEXAMETHASONE SOD PHOSPHATE 10 MG/ML 1 ML VIAL IV ONE; -HEPARIN SODIUM,PORCINE 5,000 UNIT/ML 1 ML VIAL SQ ONE; +LIDOCAINE 1% (10MG/ML) FOR IV START INTRADERMA PRN; -LIDOCAINE 1% 20 ML VIAL (10MG/ML) FOR IV START INTRADERMA PRN; -MIDAZOLAM (PF) 2 MG/2 ML VIAL IV PRN; -ONDANSETRON 4 MG/2 ML VIAL IVP ONE; -Pre Op ABX Message 1 EACH MISC MISCELLANE ONE; -SCOPOLAMINE 1.5MG/72HR PATCH TRANSDERM ONE
[2024-10-18 11:54] VITALS: RESP 16; TEMP 97.4
[2024-10-18] MEDS: IV FLUID CONTINUATION 1,000 ML IV ONE (12:03)
[2024-10-18 12:05] LABS: Glucose,Whole Blood 147 mg/dL (70-110)
[2024-10-18] MEDS ORDERED: LIDOCAINE 2% (PF) 20 MG/ML 5 ML VIAL ONE (12:26)
[2024-10-18] MEDS ORDERED: PROPOFOL 10 MG/ML 20 ML VIAL IV ONE (12:26)
--- NOTE | 2024-10-18 12:28 | P.GSHP ---
History of Present Illness H&P Date: 10/18/24 Chief Complaint: Colon cancer screening 49-year-old female here for colonoscopy. She has not had 1 previously. No bowel complaints. No family history of colon cancer. Past Medical History Past Medical History: Asthma, Hypertension Additional Past Medical History / Comment(s): BORDERLINE DIABETIC History of Any Multi-Drug Resistant Organisms: None Reported Past Surgical History: Cholecystectomy, Hysterectomy Additional Past Surgical History / Comment(s): BENIGN TUMOR REMOVED FROM OVARY, Past Anesthesia/Blood Transfusion Reactions: No Reported Reaction Smoking Status: Former smoker - Past Family History Brother(s) Family Medical History: Deep Vein Thrombosis (DVT) Medications and Allergies Home Medications Medication Instructions Recorded Confirmed Type Losartan [Cozaar] 25 mg PO DAILY 10/14/24 10/18/24 History Multivit with Calcium,Iron,Min 1 each PO DAILY 10/14/24 10/14/24 History [Women's Multivitamin] Tirzepatide [Mounjaro] 5 mg SQ MO 10/14/24 10/14/24 History Allergies Allergy/AdvReac Type Severity Reaction Status Date / Time No Known Allergies Allergy Verified 10/18/24 11:43 Surgical - Exam Vital Signs Temp Pulse Resp BP Pulse Ox 97.4 F L 76 16 149/84 96 10/18/24 11:53 10/18/24 11:53 10/18/24 11:53 10/18/24 11:53 10/18/24 11:53 Physical exam: General: Well-developed, well-nourished HEENT: Normocephalic, sclerae nonicteric Abdomen: Nontender, nondistended Extremities: No edema Neuro: Alert and oriented Results - Labs Abnormal Lab Results - Last 24 Hours (Table) 10/18/24 Range/Units 12:03 POC Glucose (mg/dL) 147 H (70-110) mg/dL Assessment and Plan (1) Colon cancer screening Narrative/Plan: Will proceed with colonoscopy at this time. Current Visit: Yes Status: Acute Code(s): Z12.11 - ENCOUNTER FOR SCREENING FOR MALIGNANT NEOPLASM OF COLON SNOMED Code(s): 620512512
--- NOTE | 2024-10-18 12:41 | P.PCN ---
Date of Procedure: 10/18/24 Procedure(s) Performed: PREOPERATIVE DIAGNOSIS: Colon cancer screening POSTOPERATIVE DIAGNOSIS: Normal exam PROCEDURE: Colonoscopy ANESTHESIA: MAC SURGEON: Gus Dwyer M.D. SPECIMENS: None ENDOSCOPIC PROCEDURE: The patient was placed on the endoscopy table in the left decubitus position. The Olympus colonoscope was inserted into the anus and passed under direct visualization to the base of the cecum. The appendiceal orifice was visualized. From that point the scope was slowly withdrawn inspecti ng all surfaces carefully. There were no neoplastic inflammatory or polypoid lesions throughout the cecum, ascending, transverse, descending, sigmoid and rectum. There was no visible diverticulosis noted. Digital rectal examination was normal. The patient was taken to the recovery room in stable condition per anesthesia guidelines. RECOMMENDATIONS: Resume diet. Repeat colonoscopy 10 years.
[2024-10-18 13:03] VITALS: BP 150/78; PULSE 78
== END 2024-10-18 13:19 | disposition home or self-care (01) ==
LOC: ORWHC2ENDO 10:51
PROVIDERS: ATTEND Surgery
DX: Z12.11 Encounter for screening for malignant neoplasm of colon (principal); I10 Essential (primary) hypertension; R73.03 Prediabetes; J45.909 Unspecified asthma, uncomplicated; F12.90 Cannabis use, unspecified, uncomplicated; Z79.899 Other long term (current) drug therapy; Z79.84 Long term (current) use of oral hypoglycemic drugs; Z90.710 Acquired absence of both cervix and uterus; Z90.49 Acquired absence of other specified parts of digestive tract; Z87.891 Personal history of nicotine dependence
CPT/HCPCS: 45378; J2704; J2003